=== PATIENT | male | born 1975 | race Caucasian/White ===

== ENCOUNTER 2021-07-04 15:41 | Outpatient (CLI) | payer OTHER, SELFPAY ==
--- NOTE | ~2021-07-04 | XR_ITS ---
EXAMINATION: XR lumbar spine 6V w bending DATE: 07/04/2021 16:09 INDICATION: Spondylosis without myelopathy or radiculopathy. TECHNIQUE: 7 views of lumbar spine including flexion and extension views were obtained. COMPARISON: None. FINDINGS: There is 4 degrees dextrocurvature of lumbar spine. Vertebral body heights are normal. Ther e is mildly decreased disc height at L4-L5 and L5-S1. There are endplate osteophytes at multiple leve ls. There is multilevel mild facet joint osteoarthritis. There is no abnormal motion with flexion or extension. IMPRESSION: 1. Mild lumbar spondylosis. Reviewed, dictated and finalized at location A. IMPRESSION: 1. Mild lumbar spondylosis.
== END 2021-07-04 15:42 | disposition home or self-care (01) ==
PROVIDERS: PCP Family Medicine; Visit Provider Family Medicine
DX: M47.816 Spondylosis without myelopathy or radiculopathy, lumbar region (principal)
CPT/HCPCS: 72114